=== PATIENT | female | born 1950 | race Caucasian/White ===

== ENCOUNTER 2016-10-15 07:53 | Day surgery (SDC) | payer MEDICARE ==
[~2016-10-15 07:53] MED LIST: LACTATED RINGERS 1,000 ML IV SCH
[2016-10-15 09:34] VITALS: TEMP 97.1
[2016-10-15] MEDS ORDERED: LIDOCAINE 1% 20 ML VIAL (10MG/ML) FOR IV START INTRADERMA ONE (09:45)
[2016-10-15] MEDS ORDERED: LABETALOL 5 MG/ML VIAL MDV ONE (09:57)
[2016-10-15] MEDS ORDERED: LIDOCAINE 1% INJ 10MG/ML (20 ML MDV) ONE (09:57)
[2016-10-15] MEDS ORDERED: PROPOFOL 10 MG/ML 20 ML VIAL IV ONE (09:57)
[2016-10-15 10:34] VITALS: RESP 16
--- NOTE | 2016-10-15 10:38 | P.PCN ---
Date of Procedure: 10/15/16 Procedure(s) Performed: Procedure: Colonoscopy and biopsy and polypectomy. Preoperative diagnosis: Blood in the stools. Postoperative diagnosis: 1. Sigmoid diverticulosis with no evidence of acute diverticulitis or strictures. 2. Distal sigmoid polyps snared but no large polyps or cancer. 3. Possible early sigmoid polyp biopsied. 4. Low-grade internal hemorrhoids and prominent anal papillae but no bleeding noted at the time of this exam. Preparation: HalfLytely prep. Sedation: Was provided by anesthesia. Brief clinical history: The patient is a 66-year-old female who is referred for this evaluation because of intermittent rectal bleeding and finding of blood in her stools. This started around March. She has had abdominal pains and alternating bowel habits as well. Her brother had colon cancer and both her son and another brother had polyps. This would be her first colonoscopy. Procedure: With the patient on her left lateral decubitus position and after informed consent and adequate sedation, the perianal area was inspected and it did not show any fissures or fistulas. There was a broad condyloma 3 cm away from the anal verge. No masses were felt on digital rectal examination. The Olympus CFQ 160L video colonoscope was then inserted in the rectum in the usual fashion and advanced to the cecum. The preparation was less than ideal and there was some thick secretions and fecal debris noted. No definite abnormalities were noted with the exception of the findings as noted below. There was multiple diverticular orifices seen scattered in the sigmoid. There was a prominent fold with submucosal hemorrhage in the distal sigmoid that could represent an early polyp which I biopsied. There was 2 other polyps which appeared inflammatory in the distal sigmoid which I snared and retrieved by suction but there were no large polyps or cancer. I retroflexed endoscope in the rectum before the endoscope was withdrawn. Prominent anal papillae were noted there was also low-grade internal hemorrhoids noted but there was no bleeding at the time of this exam. The patient tolerated the procedure well. Plan: The patient was reassured. Discussed dietary measures and local care for hemorrhoids. With her family history and the less than ideal preparation today and the finding of polyps, I'm recommending repeat exam in 3 years. She will follow-up with you as planned.
[2016-10-15 10:55] VITALS: BP 145/75; PULSE 90
== END 2016-10-15 11:19 | disposition home or self-care (01) ==
LOC: ORWHC2ENDO 07:53
DX: K51.40 Inflammatory polyps of colon without complications (principal); K57.30 Diverticulosis of large intestine without perforation or abscess without bleeding; K64.8 Other hemorrhoids; K62.89 Other specified diseases of anus and rectum; I10 Essential (primary) hypertension; E78.5 Hyperlipidemia, unspecified; F17.200 Nicotine dependence, unspecified, uncomplicated; Z80.0 Family history of malignant neoplasm of digestive organs; Z79.82 Long term (current) use of aspirin; Z79.899 Other long term (current) drug therapy
CPT/HCPCS: 45385; 45380; 88305; J2001; J2704; 99153

== ENCOUNTER 2019-08-23 04:22 | Inpatient (IN) | payer MEDICARE ==
--- NOTE | 2019-08-23 05:14 | XR ---
EXAMINATION TYPE: XR chest 2V DATE OF EXAM: 08/23/2019 COMPARISON: NONE HISTORY: Short of breath TECHNIQUE: 2 views FINDINGS: Heart is normal. Lungs are clear of infiltrate. Thoracic aorta is atheromatous. There are c hest leads. Bony thorax is intact. IMPRESSION: No active cardiopulmonary disease.
--- NOTE | 2019-08-23 05:17 | ED ---
SOB HPI - General Chief Complaint: Shortness of Breath Stated Complaint: Resp. distress Source: patient, EMS Mode of arrival: EMS Limitations: no limitations - History of Present Illness Initial Comments: Candace is a 69 -year-old female who is occur every day cigarette smoker but denies any formal diagnosis of COPD or emphysema. Patient presents the ER today for evaluation of wheezing and feeling like she can't catch her breath. Patient states that she has a history of needing breathing treatments in the past for which she usually goes her doctor's office she doesn't have nebulizer breathing treatments at home. He states that throughout the night tonight she felt she wa s wheezing and couldn't catch her breath so finally she decided to call the ambulance. She received 2 breathing treatments throughout the hospital reports she is feeling mostly better. Patient states she got her flu shot this year she's had her pneumonia vaccine. Patient denies any associated chest pressure or pain, palpitations, diaphoresis, lightheadedness or any recent fevers chills nausea vomiting or change in bowel or bladder habits. - Related Data Home Medications Medication Instructions Recorded Confirmed Aspirin EC [Ecotrin Low Dose] 81 mg PO HS 05/22/16 10/10/16 Simvastatin [Zocor] 40 mg PO HS 05/22/16 10/15/16 Atorvastatin Calcium [Lipitor] 20 mg PO DAILY 10/15/16 10/15/16 Allergies Allergy/AdvReac Type Severity Reaction Status Date / Time No Known Allergies Allergy Verified 10/10/16 09:12 Review of Systems ROS Statement: Those systems with pertinent positive or pertinent negative responses have been documented in the HPI. ROS Other: All systems not noted in ROS Statement are negative. Past Medical History Past Medical History: Hyperlipidemia, Hypertension History of Any Multi-Drug Resistant Organisms: None Reported Past Surgical History: Appendectomy, Cholecystectomy, Tonsillectomy Past Anesthesia/Blood Transfusion Reactions: No Reported Reaction Past Psychological History: No Psychological Hx Reported Smoking Status: Current every day smoker Past Alcohol Use History: Occasional Past Drug Use History: None Reported - Past Family History Brother(s) Family Medical History: Cancer General Exam - General Exam Comments Initial Comments: Physical Exam GENERAL: Chronically ill appearing HENT: Normocephalic, Atraumatic. EYES: PERRL, EOMI PULMONARY: Mild expiratory wheezing in all lung garduno CARDIOVASCULAR: There is a regular rate and rhythm without any murmurs gallops or rubs. ABDOMEN: Soft and nontender with normal bowel sounds. SKIN: Skin is clear with no lesions or rashes and otherwise unremarkable. : Deferred NEUROLOGIC: Patient is alert and oriented x3. Moving all extremities spontaneously MUSCULOSKELETAL: Normal extremities with adequate strength and full range of motion. No lower extremity swelling or edema. No calf tenderness. PSYCHIATRIC: Normal psychiatric evaluation. Limitations: no limitations Course Vital Signs 08/23/19 08/23/19 04:23 04:30 Temperature 98.6 F Pulse Rate 83 Respiratory 22 20 Rate Blood Pressure 123/65 O2 Sat by Pulse 96 Oximetry Medical Decision Making - Medical Decision Making She was seen and evaluated upon arrival emergency department this 69-year-old female with history of tobacco abuse but no formal diagnosis of emphysema or COPD. Patient is presenting with what appears to be a COPD exacerbation she is wheezing but afebrile. She's received 2 breathing treatments, DuoNeb's prior to arrival as well as 125 of Solu-Medrol. Additional breathing treatment and supplement oxygen was ordered for hypoxia and wheezing. Labs were unremarkable chest x-ray with no signs of pneumonia. Upon reevaluation the patient is noted be resting comfortably in bed with an oxygen saturation of only 87% despite being on 2 L nasal cannula. Decision was made to admit the patient for likely COPD exacerbation. orders were placed, pulmonology was consulted, round the clock breathing treatments daily steroids were ordered for a repeat exacerbation. - Lab Data Result diagrams: 08/23/19 04:28 08/23/19 04:28 Lab Results 08/23/19 08/23/19 08/23/19 Range/Units 04:28 04:28 04:28 WBC 10.3 (3.8-10.6) k/uL RBC 4.92 (3.80-5.40) m/uL Hgb 15.7 (11.4-16.0) gm/dL Hct 45.9 (34.0-46.0) % MCV 93.3 (80.0-100.0) fL MCH 31.8 (25.0-35.0) pg MCHC 34.1 (31.0-37.0) g/dL RDW 14.0 (11.5-15.5) % Plt Count 299 (150-450) k/uL Neutrophils % 63 % Lymphocytes % 24 % Monocytes % 7 % Eosinophils % 3 % Basophils % 1 % Neutrophils # 6.5 (1.3-7.7) k/uL Lymphocytes # 2.5 (1.0-4.8) k/uL Monocytes # 0.8 (0-1.0) k/uL Eosinophils # 0.3 (0-0.7) k/uL Basophils # 0.1 (0-0.2) k/uL PT 9.4 (9.0-12.0) sec INR 0.9 (<1.2) APTT 23.9 (22.0-30.0) sec Sodium 139 (137-145) mmol/L Potassium 4.6 (3.5-5.1) mmol/L Chloride 110 H (98-107) mmol/L Carbon Dioxide 23 (22-30) mmol/L Anion Gap 6 mmol/L BUN 13 (7-17) mg/dL Creatinine 0.54 (0.52-1.04) mg/dL Est GFR (CKD-EPI)AfAm >90 (>60 ml/min/1.73 sqM) Est GFR (CKD-EPI)NonAf >90 (>60 ml/min/1.73 sqM) Glucose 105 H (74-99) mg/dL Calcium 9.0 (8.4-10.2) mg/dL Total Bilirubin 0.8 (0.2-1.3) mg/dL AST 33 (14-36) U/L ALT 22 (4-34) U/L Alkaline Phosphatase 72 (38-126) U/L Troponin I (0.000-0.034) ng/mL Total Protein 7.0 (6.3-8.2) g/dL Albumin 3.6 (3.5-5.0) g/dL 08/23/19 Range/Units 04:28 WBC (3.8-10.6) k/uL RBC (3.80-5.40) m/uL Hgb (11.4-16.0) gm/dL Hct (34.0-46.0) % MCV (80.0-100.0) fL MCH (25.0-35.0) pg MCHC (31.0-37.0) g/dL RDW (11.5-15.5) % Plt Count (150-450) k/uL Neutrophils % % Lymphocytes % % Monocytes % % Eosinophils % % Basophils % % Neutrophils # (1.3-7.7) k/uL Lymphocytes # (1.0-4.8) k/uL Monocytes # (0-1.0) k/uL Eosinophils # (0-0.7) k/uL Basophils # (0-0.2) k/uL PT (9.0-12.0) sec INR (<1.2) APTT (22.0-30.0) sec Sodium (137-145) mmol/L Potassium (3.5-5.1) mmol/L Chloride (98-107) mmol/L Carbon Dioxide (22-30) mmol/L Anion Gap mmol/L BUN (7-17) mg/dL Creatinine (0.52-1.04) mg/dL Est GFR (CKD-EPI)AfAm (>60 ml/min/1.73 sqM) Est GFR (CKD-EPI)NonAf (>60 ml/min/1.73 sqM) Glucose (74-99) mg/dL Calcium (8.4-10.2) mg/dL Total Bilirubin (0.2-1.3) mg/dL AST (14-36) U/L ALT (4-34) U/L Alkaline Phosphatase (38-126) U/L Troponin I <0.012 (0.000-0.034) ng/mL Total Protein (6.3-8.2) g/dL Albumin (3.5-5.0) g/dL - EKG Data -: EKG Interpreted by Me EKG Comments: EKG was obtained due to complaint of shortness of breath, EKG was obtained at 4:30 AM, rate is 83 rhythm is sinus at normal axis are normal intervals there's no acute ST elevations or depressions no evidence of acute ischemia, infarction or acute right heart strain Disposition Clinical Impression: COPD exacerbation, Tobacco abuse Disposition: ADMITTED IP TO THIS HOSP Condition: Serious Referrals: Kobe Alcala MD [Primary Care Provider] - 1-2 days
[2019-08-23 05:18] LABS: Basophils # (A) 0.1 k/uL (0-0.2); Basophils % (A) 1 %; Eosinophils # (A) 0.3 k/uL (0-0.7); Eosinophils % (A) 3 %; HCT 45.9 % (34.0-46.0); HGB 15.7 gm/dL (11.4-16.0); Lymphocytes # (A) 2.5 k/uL (1.0-4.8); Lymphocytes % (A) 24 %; MCH 31.8 pg (25.0-35.0); MCHC 34.1 g/dL (31.0-37.0); MCV 93.3 fL (80.0-100.0); Mean Platelet Volume 7.2; Monocytes # (A) 0.8 k/uL (0-1.0); Monocytes % (A) 7 %; Neutrophils # (A) 6.5 k/uL (1.3-7.7); Neutrophils % (A) 63 %; Platelet Count 299 k/uL (150-450); RBC 4.92 m/uL (3.80-5.40); WBC 10.3 k/uL (3.8-10.6)
[2019-08-23 05:30] LABS: INR 0.9 (<1.2); Partial Thromboplastin Time 23.9 sec (22.0-30.0); Prothrombin Time 9.4 sec (9.0-12.0)
[2019-08-23 05:34] LABS: ALT 22 U/L (4-34); African American GFR (CKD) >90 (>60 ml/min/1.73 sqM); Anion Gap 6 mmol/L; Blood Urea Nitrogen 13 mg/dL (7-17); Carbon Dioxide 23 mmol/L (22-30); Chloride 110 mmol/L (98-107); Glucose 105 mg/dL (74-99); Non-African American GFR(CKD) >90 (>60 ml/min/1.73 sqM); Sodium 139 mmol/L (137-145)
[2019-08-23 06:17] LABS: Potassium 4.6 mmol/L (3.5-5.1)
[2019-08-23 06:18] LABS: AST 33 U/L (14-36); Albumin 3.6 g/dL (3.5-5.0); Alkaline Phosphatase 72 U/L (38-126); Total Bilirubin 0.8 mg/dL (0.2-1.3)
[2019-08-23] MEDS ORDERED: IPRATROPIUM-ALBUTEROL 3 ML NEB INHALATION PRN ×2 (06:29→15:09)
[2019-08-23] MEDS ORDERED: NICOTINE POLACRILEX 2 MG GUM BUCCAL PRN (06:29)
[2019-08-23] MEDS ORDERED: predniSONE 20 MG TAB PO SCH (09:00)
[2019-08-23] MEDS: NICOTINE 14MG/24HR PATCH TRANSDERM SCH (10:29)
[2019-08-23] MEDS ORDERED: ACETAMINOPHEN TAB 500 MG TAB PO PRN (15:48)
[2019-08-23] MEDS ORDERED: TEMAZEPAM 15 MG CAP PO PRN (15:48)
[2019-08-23] MEDS ORDERED: ALPRAZolam 0.25 MG TAB PO PRN (15:48)
[2019-08-23] MEDS: IPRATROPIUM-ALBUTEROL 3 ML NEB INHALATION SCH ×2 (16:16→19:54)
[2019-08-23] MEDS: methylPREDNISolone SOD SUCCI 125 MG/2 ML VIAL IV SCH ×2 (17:07→23:04)
[2019-08-23] MEDS: guaiFENesin-Coden 100-10MG/5ML 10 ML CUP PO PRN (17:07)
--- NOTE | 2019-08-23 17:15 | HP ---
HISTORY AND PHYSICAL DATE OF SERVICE: 08/23/2019 CHIEF COMPLAINT: Shortness of breath. HISTORY OF PRESENT ILLNESS: This 69-year-old woman with a past medical history of multiple medical problems including GERD, hypertension, hyperlipidemia, history of renal disease, appendectomy, history of cholecystectomy, anxiety, depression, being followed by Dr. Alcala in the outpatient setting, was complaining of shortness of breath over the past several days. Patient has some cough and sputum. The patient had increasing wheezing and the patient unable to catch breath. The patient continued ongoing smoking. The patient was clinically diagnosed with COPD and admitted for evaluation and treatment. There is no history of fever, rigors. No headache, loss of consciousness, seizures. Influenza is negative. PAST MEDICAL HISTORY: History of GERD, history of GI bleed, history of hypertension, hyperlipidemia, history of appendectomy, cholecystectomy, anxiety, depression. MEDICATIONS: Prior to admission home medications are: 1. Mucinex 1200 mg p.o. b.i.d. 2. Cozaar 50 mg q.h.s. 3. Diltiazem ER 180 mg q.h.s. 4. Celexa 40 mg p.o. daily. 5. Lipitor 20 mg q.h.s. 6. Ecotrin 81 mg q.h.s. ALLERGIES: None. FAMILY HISTORY: History of colon cancer in the family. SOCIAL HISTORY: Continued ongoing smoking and occasional alcohol intake. REVIEW OF SYSTEMS: ENT No history of diminished hearing or vision. CARDIOVASCULAR No angina or palpitations. RESPIRATORY As mentioned earlier. GI No nausea, vomiting, or diarrhea. No dysuria. NERVOUS No numbness or weakness. ALLERGY/IMMUNOLOGY No asthma or hayfever. MUSCULOSKELETAL As mentioned earlier. HEMATOLOGY/ONCOLOGY Negative. ENDOCRINE No history of diabetes or hypothyroidism. CONSTITUTIONAL As mentioned earlier. PSYCH As mentioned earlier. PHYSICAL EXAMINATION: Alert and oriented x3. Pulse 80, blood pressure is 170/77, respiration 22, temperature 98.7, pulse ox 98% on 2 L. HEENT: Conjunctivae normal. Oral mucosa moist. NECK: No jugular venous distention. No lymph node enlargement. CARDIOVASCULAR: S1, S2. RESPIRATORY: Diminished breath sounds at the bases. A few scattered rhonchi and crackles. ABDOMEN: Soft, obese, nontender. LEGS: No edema, no swelling. NERVOUS SYSTEM: Higher functions mentioned earlier. Moves all four limbs. No focal deficits. LYMPHATICS: No lymph node in neck or axilla. SKIN: No rash. JOINTS: No active deforming arthropathy. LABS: At this time show CBC within normal limits. Sodium 130, potassium 4.6. Chest x-ray personally reviewed by me showed increased bronchovascular markings. The EKG shows normal sinus rhythm, no acute abnormality. ASSESSMENT: 1. Shortness of breath for evaluation, possible chronic obstructive pulmonary disease acute exacerbation with acute purulent tracheobronchitis. 2. Continued ongoing nicotine dependence. 3. Gastroesophageal reflux disease. 4. History of gastrointestinal bleed. 5. Hypertension. 6. Hyperlipidemia. 7. History of renal disease. 8. History of colonic polyps. 9. History of urinary tract infection. 10.History of nephrolithiasis. 11.History of cholecystectomy. 12.History of anxiety, depression. 13.Obesity with body mass of 32.9. RECOMMENDATIONS AND DISCUSSION: In this 69-year-old woman who presented with multiple complex medical issues, we will monitor the patient closely, continue the current management and symptomatic treatment. At this time we will initiate empiric bronchodilators in the intensive manner. Empiric antibiotics will be given. Dr. Lira will consulted. Will also order a 2D echo with Doppler to complete the workup. I would also recommend a BNP also. UA with micro has also been requested to rule out the possibility of heavy proteinuria. Otherwise, prognosis guarded. Further recommendations to follow. MMODL / IJN: [id number] /
[2019-08-23] MEDS: SYMBICORT 160-4.5 MCG INHALER INHALATION SCH (19:54)
--- NOTE | 2019-08-23 21:47 | CONS ---
CONSULTATION DATE OF CONSULTATION: August 23, 2019 HISTORY OF PRESENT ILLNESS: This is a 69-year-old female who is smokes cigarettes each day. She apparently has never seen a lung doctor in the past. Her primary care physician is Dr. Alcala. She presents to the emergency department with complaints of profound shortness of breath and difficulty breathing. She was wheezing. She felt like she could not catch her breath. She had tightness in her chest. She was coughing but not producing any phlegm. The patient does not take any breathing medications at home including either updrafts or inhalers. For that reason, she called the EMS and she was brought into the emergency room where she was evaluated. In route, she apparently received 2 breathing treatments. She is feeling a bit better but still has a lot of tightness in her chest, coughing and wheezing. Again, she smokes quite heavily, more than a pack a day and continues to smoke cigarettes. Again, has never seen a lung doctor in the past. Does not use oxygen at home and does not have any breathing medications or equipment at home for her suspected COPD. HOME MEDICATIONS: Include aspirin, Zocor, and Lipitor. ALLERGIES: Denied. PAST MEDICAL HISTORY: Apparently positive for hypertension and hyperlipidemia. She takes no medication for hypertension though. She likely has underlying COPD as well from chronic tobacco use, although it has never been documented. She has never seen a lung doctor in the past. SURGICAL HISTORY: Includes tonsillectomy, appendectomy and cholecystectomy. SOCIAL HISTORY: Positive for ongoing everyday tobacco use at 1 to 1 and 1/2 packs a day. She has been smoking probably for nearly 50 years. Alcohol use is occasional. She denies illicit drug use. FAMILY HISTORY: Positive for a brother with cancer. She does not know her parents. REVIEW OF SYSTEMS: CONSTITUTIONAL negative. NEUROLOGIC negative. HEENT negative. CARDIOVASCULAR negative. PULMONARY shortness of breath. Chest tightness, wheezing, cough. No phlegm production. GI negative. negative. RHEUMATOLOGIC negative. IMMUNOLOGIC negative ENDOCRINOLOGIC negative. DERMATOLOGIC negative. PHYSICAL EXAMINATION: VITAL SIGNS: Current vital signs are reviewed. Her temperature is 98, heart rate 80, respiratory rate 22, blood pressure 170/77 mean 108, 2 L saturation 98%. She appears in no acute distress. She is lying on her left side. Nasal O2 in place. There is no conversational dyspnea, use of accessory muscles or audible wheezing. HEENT examination is grossly unremarkable. Nasal O2 in place. Teeth are in poor repair. NECK: Supple. Full range of motion. No adenopathy or thyromegaly. Neck veins are flat. CARDIOVASCULAR examination reveals regular rhythm and rate. Heart rate 80 beats per minute. S1, S2 normal. No S3, S4, or murmur. LUNGS: Reveal some expiratory wheezes. Breath sounds are diminished. There is prolongation on forced maneuver. No crackles. A few scattered rhonchi. Adventitious lung sounds are more prominent on forced maneuver. She wheezes on forced maneuver. ABDOMEN: Obese. Bowel sounds are heard. EXTREMITIES are intact. No cyanosis, clubbing, or edema. SKIN: Without rash. NEUROLOGIC: Examination is nonfocal. LABS: Reviewed. White count 10.3, hemoglobin 15.7, hematocrit 45.9, platelet count 299,000. PT/INR and PTT all normal. Sodium 139, potassium 4.6, chloride 110, CO2 23, anion gap is 6. BUN and creatinine were 13 and 0.54. Influenza studies are negative. The rest of the labs look good. Troponins were negative. Chest x-ray shows no acute cardiopulmonary disease. Medications are reviewed. She is just on Guaifenesin with codeine, DuoNeb, nicotine patch, and prednisone 40 mg a day. ASSESSMENT: 1. Chronic obstructive pulmonary disease exacerbation not likely triggered by infection. 2. History of ongoing tobacco use with nicotine addiction. 3. History of hypertension. 4. History of hyperlipidemia. PLAN: The patient will be given Symbicort 160/4.5, 2 puffs twice a day. We will give her a short course of oral antibiotics. Discontinue the prednisone in favor of Solu-Medrol. Additional recommendations and suggestions are forthcoming. I would suspect a 2-3 day stay here in the hospital. No additional recommendations are made. The chest x-ray is reviewed and discussed with the patient. We counseled her about the importance of smoking cessation. Nicotine patch has been applied. MMODL / IJN: [id number] /
[2019-08-23] MEDS: guaiFENesin 600 MG TABLET.ER PO SCH (21:49)
[2019-08-23] MEDS: ASPIRIN 81 MG PO SCH (21:49)
[2019-08-23] MEDS: HEPARIN SODIUM,PORCINE 5,000 UNIT/ML 1 ML VIAL SQ SCH (21:49)
[2019-08-23] MEDS: ATORVASTATIN 20 MG TAB PO SCH (21:49)
[2019-08-23] MEDS: LOSARTAN 50 MG TAB PO SCH (21:49)
[2019-08-23] MEDS: DILTIAZEM CD 180 MG CAP.ER.24H PO SCH (21:52)
[2019-08-23] MEDS: SULFAMETHOX-TMP 800-160MG 1 EACH TAB PO SCH (21:52)
[2019-08-24] MEDS: methylPREDNISolone SOD SUCCI 125 MG/2 ML VIAL IV SCH ×4 (05:27→23:47)
[2019-08-24] MEDS: IPRATROPIUM-ALBUTEROL 3 ML NEB INHALATION SCH ×4 (07:08→20:18)
[2019-08-24] MEDS: SYMBICORT 160-4.5 MCG INHALER INHALATION SCH ×2 (07:08→20:18)
[2019-08-24 08:47] LABS: Basophils % (A) 0 %; Eosinophils % (A) 0 %; HCT 49.2 % (34.0-46.0); HGB 15.3 gm/dL (11.4-16.0); Lymphocytes # (A) 0.7 k/uL (1.0-4.8); Lymphocytes % (A) 3 %; MCH 29.4 pg (25.0-35.0); MCHC 31.2 g/dL (31.0-37.0); MCV 94.2 fL (80.0-100.0); Mean Platelet Volume 7.4; Monocytes # (A) 0.4 k/uL (0-1.0); Monocytes % (A) 2 %; Neutrophils # (A) 20.7 k/uL (1.3-7.7); Neutrophils % (A) 95 %; Platelet Count 342 k/uL (150-450); RBC 5.23 m/uL (3.80-5.40); RDW 13.9 % (11.5-15.5); WBC 21.9 k/uL (3.8-10.6)
[2019-08-24] MEDS: NICOTINE 14MG/24HR PATCH TRANSDERM SCH (08:47)
[2019-08-24] MEDS: HEPARIN SODIUM,PORCINE 5,000 UNIT/ML 1 ML VIAL SQ SCH ×2 (08:47→21:59)
[2019-08-24] MEDS: guaiFENesin 600 MG TABLET.ER PO SCH ×2 (08:48→21:59)
[2019-08-24] MEDS: PANTOPRAZOLE 40 MG TABLET PO SCH (08:48)
[2019-08-24] MEDS: SULFAMETHOX-TMP 800-160MG 1 EACH TAB PO SCH ×2 (08:49→21:59)
[2019-08-24] MEDS: CITALOPRAM HYDROBROMIDE 20 MG TAB PO SCH (08:49)
[2019-08-24 08:56] LABS: African American GFR (CKD) >90 (>60 ml/min/1.73 sqM); Anion Gap 10 mmol/L; Blood Urea Nitrogen 19 mg/dL (7-17); Calcium 9.9 mg/dL (8.4-10.2); Carbon Dioxide 21 mmol/L (22-30); Chloride 110 mmol/L (98-107); Glucose 161 mg/dL (74-99); Non-African American GFR(CKD) >90 (>60 ml/min/1.73 sqM); Sodium 141 mmol/L (137-145)
--- NOTE | 2019-08-24 10:58 | ECHOF ---
Referral Reason:chf MEASUREMENTS -------- HEIGHT: 154.9 cm WEIGHT: 78.9 kg BP: 111/67 RVIDd: 2.8 cm (< 3.3) IVSd: 1.4 cm (0.6 - 1.1) LVIDd: 3.4 cm (3.9 - 5.3) LVPWd: 1.2 cm (0.6 - 1.1) IVSs: 1.5 cm LVIDs: 2.2 cm LVPWs: 1.7 cm LA Diam: 3.3 cm (2.7 - 3.8) LAESV Index (A-L): 22.50 ml/m Ao Diam: 2.4 cm (2.0 - 3.7) MV EXCURSION: 10.738 mm (> 18.000) MV EF SLOPE: 86 mm/s (70 - 150) EPSS: 0.4 cm MV E Donnie: 0.85 m/s MV DecT: 289 ms MV A Donnie: 1.04 m/s MV E/A Ratio: 0.82 AV maxP.24 mmHg AV meanP.98 mmHg RAP: 5.00 mmHg RVSP: 35.43 mmHg FINDINGS -------- Sinus rhythm. This was a technically difficult study with suboptimal views. The left ventricular size is normal. There is moderate concentric left ventricular hypertrophy. O verall left ventricular systolic function is normal with, an EF between 55 - 60 %. The right ventricle is normal in size. Normal LA size by volume 22+/-6 ml/m2. The right atrial size is normal. Interatrial and interventricular septum intact. The aortic valve was not well visualized. Peak/mean gradient across the Aortic Valve is 15.24mmHg / 6.98mmHg. The mitral valve is normal. There is trace to mild mitral regurgitation. Mild tricuspid regurgitation present. There is mild pulmonary hypertension. The pulmonic valve was not well visualized. Trace/mild (physiologic) pulmonic regurgitation. The aortic root size is normal. Normal inferior vena cava with normal inspiratory collapse consistent with estimated right atrial pre ssure of 5 mmHg. There is no pericardial effusion. CONCLUSIONS -------- 1. Sinus rhythm. 2. This was a technically difficult study with suboptimal views. 3. The left ventricular size is normal. 4. There is moderate concentric left ventricular hypertrophy. 5. Overall left ventricular systolic function is normal with, an EF between 55 - 60 %. 6. Normal LA size by volume 22+/-6 ml/m2. 7. The aortic valve was not well visualized. 8. Peak/mean gradient across the Aortic Valve is 15.24mmHg / 6.98mmHg. 9. There is trace to mild mitral regurgitation. 10. Mild tricuspid regurgitation present. 11. There is mild pulmonary hypertension. 12. Trace/mild (physiologic) pulmonic regurgitation. 13. There is no pericardial effusion. LEARNING DEVELOPER: Nydia Almonte RDCS
--- NOTE | 2019-08-24 13:43 | P.PN ---
Subjective Progress Note Date: 08/24/19 Principal diagnosis: Acute exacerbation of COPD On 08/24/2019 patient seen in follow-up on medical surgical floor. She is feeling better, breathing a bit easier, however still dyspneic, and bronchospastic on today's exam. She is awake and alert, mentation appropriate, on 2 L of oxygen her pulse ox is 96%, hemodynamically stable. On today's labs her white blood cell count is 21.9, could be related to IV steroids, hemoglobin is 15.3, sodium is 141, potassium is 4.0, chloride is 110, CO2 is 21, B1 is 19 and creatinine 0.5. Influenza screen was negative. Occasional cough, no hemoptysis. Objective - Vital Signs Vital signs: Vital Signs Temp 98 F 08/24/19 11:36 Pulse 84 08/24/19 11:58 Resp 20 08/24/19 11:36 BP 124/65 08/24/19 11:36 Pulse Ox 96 08/24/19 11:36 Intake & Output 08/23/19 08/24/19 08/24/19 18:59 06:59 18:59 Intake Total 360 Output Total 350 Balance 10 Weight 78.925 kg Intake: Oral 360 Output: Urine 350 Other: # Voids 1 - Exam GENERAL EXAM: Alert, very pleasant, 69-year-old white female comfortable in no apparent distress. HEAD: Normocephalic/atraumatic. EYES: Normal reaction of pupils, equal size. Conjunctiva pink, sclera white. NOSE: Clear with pink turbinates. THROAT: No erythema or exudates. NECK: No masses, no JVD, no thyroid enlargement, no adenopathy. CHEST: No chest wall deformity. Symmetrical expansion. LUNGS: Equal air entry with diffuse wheezes CVS: Regular rate and rhythm, normal S1 and S2, no gallops, no murmurs, no rubs ABDOMEN: Soft, nontender. No hepatosplenomegaly, normal bowel sounds, no guarding or rigidity. EXTREMITIES: No clubbing, no edema, no cyanosis, 2+ pulses and upper and lower extremities. MUSCULOSKELETAL: Muscle strength and tone normal. SPINE: No scoliosis or deformity SKIN: No rashes CENTRAL NERVOUS SYSTEM: Alert and oriented -3. No focal deficits, tone is normal in all 4 extremities. PSYCHIATRIC: Alert and oriented -3. Appropriate affect. Intact judgment and insight. - Labs CBC & Chem 7: 08/24/19 08:13 08/24/19 08:13 Labs: Abnormal Lab Results - Last 24 Hours (Table) 08/24/19 08/24/19 Range/Units 08:13 08:13 WBC 21.9 H (3.8-10.6) k/uL Hct 49.2 H (34.0-46.0) % Neutrophils # 20.7 H (1.3-7.7) k/uL Lymphocytes # 0.7 L (1.0-4.8) k/uL Chloride 110 H (98-107) mmol/L Carbon Dioxide 21 L (22-30) mmol/L BUN 19 H (7-17) mg/dL Glucose 161 H (74-99) mg/dL Assessment and Plan Plan: Assessment: #1. Acute exacerbation of chronic obstructive pulmonary disease #2. Hitory of ongoing tobacco use with nicotine addiction #3. History of hypertension #4. History of hyperlipidemia Plan: Current medical treatment, continue Symbicort, nebulized bronchodilator's, IV steroids. Vital signs are stable, patient is breathing easier, improving. We'll continue to follow I performed a history & physical examination of the patient and discussed their management with my nurse practitioner, Billie Apodaca. I reviewed the nurse practitioner's note and agree with the documented findings and plan of care. Lung sounds are positive for diffuse wheezes throughout the lung garduno. The findings and the impression was discussed with the patient. I attest to the documentation by the nurse practitioner. Time with Patient: Less than 30
--- NOTE | 2019-08-24 18:52 | PN ---
PROGRESS NOTE DATE OF SERVICE: 08/24/2019 This 69-year-old woman who was admitted with shortness of breath, possibly COPD, acute exacerbation, also had continued ongoing nicotine dependence. A 2D echo with Doppler was done which showed ejection fraction about 55% to 60%. The patient was extremely short of breath. Influenza screen is negative. No chest pain. No palpitation. PHYSICAL EXAMINATION: Alert and oriented x3. Pulse is 83, blood pressure 124/65, respiration 20, temperature 98 degrees, pulse ox 96% on 2 L. HEENT: Conjunctivae normal. NECK: No jugular venous distention. CARDIOVASCULAR SYSTEM: S1, S2 muffled. RESPIRATORY SYSTEM: Breath sounds diminished at the bases. Scattered rhonchi and crackles. Expiratory wheezing also present. ABDOMEN: Soft, non-tender. LEGS: No edema. No swelling. NERVOUS SYSTEM: No focal deficit. LABS: WBC 21.9, hemoglobin 15.3, sodium 141, potassium 4. ASSESSMENT: 1. Shortness of breath, possibly chronic obstructive pulmonary disease, acute exacerbation, with acute purulent tracheobronchitis. 2. Continued ongoing nicotine dependence. 3. Gastroesophageal reflux disease. 4. History of gastrointestinal bleed. 5. Hypertension. 6. Hyperlipidemia. 7. History of renal disease. 8. History of chronic polyps. 9. History of urinary tract infection. 10.History of nephrolithiasis. 11.History of cholecystectomy. 12.History of anxiety, depression. 13.Obesity with body mass index of 32.9. RECOMMENDATIONS AND DISCUSSION: I recommend to continue current medications, continue with the monitoring, symptomatic treatment. Otherwise, 2D echo showed normal ejection fraction. The BNP was 597. Influenza negative. Will continue to monitor, continue steroids and bronchodilators and antibiotics. Further recommendations to follow. Closely follow with Dr. Lira. Further recommendations to follow. MMODL / IJN: [id number] /
[2019-08-24] MEDS: ATORVASTATIN 20 MG TAB PO SCH (21:59)
[2019-08-24] MEDS: guaiFENesin-Coden 100-10MG/5ML 10 ML CUP PO PRN (21:59)
[2019-08-24] MEDS: DILTIAZEM CD 180 MG CAP.ER.24H PO SCH (21:59)
[2019-08-24] MEDS: ASPIRIN 81 MG PO SCH (21:59)
[2019-08-24] MEDS: LOSARTAN 50 MG TAB PO SCH (21:59)
[2019-08-25] MEDS: methylPREDNISolone SOD SUCCI 125 MG/2 ML VIAL IV SCH ×4 (05:55→23:59)
[2019-08-25 07:34] LABS: Basophils % (A) 0 %; Eosinophils # (A) 0.1 k/uL (0-0.7); Eosinophils % (A) 0 %; HCT 44.5 % (34.0-46.0); HGB 14.4 gm/dL (11.4-16.0); Lymphocytes # (A) 0.7 k/uL (1.0-4.8); Lymphocytes % (A) 3 %; MCH 30.3 pg (25.0-35.0); MCHC 32.3 g/dL (31.0-37.0); Mean Platelet Volume 7.6; Monocytes # (A) 0.4 k/uL (0-1.0); Monocytes % (A) 2 %; Neutrophils # (A) 23.4 k/uL (1.3-7.7); Neutrophils % (A) 95 %; Platelet Count 313 k/uL (150-450); RBC 4.74 m/uL (3.80-5.40); RDW 14.1 % (11.5-15.5); WBC 24.7 k/uL (3.8-10.6)
[2019-08-25 07:52] LABS: African American GFR (CKD) >90 (>60 ml/min/1.73 sqM); Anion Gap 10 mmol/L; Blood Urea Nitrogen 25 mg/dL (7-17); Calcium 9.6 mg/dL (8.4-10.2); Carbon Dioxide 20 mmol/L (22-30); Chloride 110 mmol/L (98-107); Glucose 127 mg/dL (74-99); Non-African American GFR(CKD) 89 (>60 ml/min/1.73 sqM); Potassium 4.5 mmol/L (3.5-5.1); Sodium 140 mmol/L (137-145)
[2019-08-25] MEDS: SYMBICORT 160-4.5 MCG INHALER INHALATION SCH ×2 (08:48→20:51)
[2019-08-25] MEDS: IPRATROPIUM-ALBUTEROL 3 ML NEB INHALATION SCH ×4 (08:48→20:51)
[2019-08-25] MEDS: guaiFENesin 600 MG TABLET.ER PO SCH ×2 (09:59→21:46)
[2019-08-25] MEDS: HEPARIN SODIUM,PORCINE 5,000 UNIT/ML 1 ML VIAL SQ SCH ×2 (09:59→21:46)
[2019-08-25] MEDS: PANTOPRAZOLE 40 MG TABLET PO SCH (09:59)
[2019-08-25] MEDS: CITALOPRAM HYDROBROMIDE 20 MG TAB PO SCH (09:59)
[2019-08-25] MEDS: SULFAMETHOX-TMP 800-160MG 1 EACH TAB PO SCH ×2 (10:00→21:47)
[2019-08-25] MEDS: NICOTINE 14MG/24HR PATCH TRANSDERM SCH (10:04)
--- NOTE | 2019-08-25 16:38 | P.PN ---
Subjective Progress Note Date: 08/25/19 Principal diagnosis: Acute exacerbation of chronic obstructive pulmonary disease per The patient is seen today 08/25/2019 in follow-up on the regular medical floor. She is awake and alert in no acute distress. Still not quite back to her baseline. Still somewhat bronchospastic and wheezy. Maintaining good O2 saturation in the upper 90s on 2 L/m per nasal cannula. White count 24.7. Hemoglobin 14.4. Creatinine 0.69. She is continued on DuoNeb inhalations, Symbicort, IV Solu-Medrol. On both NicoDerm patch and Nicorette gum. Antibiotics in the in the form of Bactrim. Objective - Vital Signs Vital signs: Vital Signs Temp 97.8 F 08/25/19 11:39 Pulse 88 08/25/19 12:23 Resp 17 08/25/19 11:39 BP 142/68 08/25/19 11:39 Pulse Ox 96 08/25/19 11:39 Intake & Output 08/24/19 08/25/19 08/25/19 18:59 06:59 18:59 Intake Total 580 850 Balance 580 850 Intake: Oral 580 850 Other: Voiding Method Toilet Toilet # Voids 3 2 3 - Exam GENERAL EXAM: Alert, pleasant, 69-year-old female patient, on 2 L nasal cannula, comfortable in no apparent distress. HEAD: Normocephalic/atraumatic. EYES: Normal reaction of pupils, equal size. Conjunctiva pink, sclera white. NOSE: Clear with pink turbinates. THROAT: No erythema or exudates. NECK: No masses, no JVD, no thyroid enlargement, no adenopathy. CHEST: No chest wall deformity. Symmetrical expansion. LUNGS: Equal air entry with diffuse wheezes CVS: Regular rate and rhythm, normal S1 and S2, no gallops, no murmurs, no rubs ABDOMEN: Soft, nontender. No hepatosplenomegaly, normal bowel sounds, no guarding or rigidity. EXTREMITIES: No clubbing, no edema, no cyanosis, 2+ pulses and upper and lower extremities. MUSCULOSKELETAL: Muscle strength and tone normal. SPINE: No scoliosis or deformity SKIN: No rashes CENTRAL NERVOUS SYSTEM: No focal deficits, tone is normal in all 4 extremities. PSYCHIATRIC: Alert and oriented -3. Appropriate affect. Intact judgment and insight. - Labs CBC & Chem 7: 08/25/19 06:48 08/25/19 06:48 Labs: Abnormal Lab Results - Last 24 Hours (Table) 08/25/19 08/25/19 Range/Units 06:48 06:48 WBC 24.7 H (3.8-10.6) k/uL Neutrophils # 23.4 H (1.3-7.7) k/uL Lymphocytes # 0.7 L (1.0-4.8) k/uL Chloride 110 H (98-107) mmol/L Carbon Dioxide 20 L (22-30) mmol/L BUN 25 H (7-17) mg/dL Glucose 127 H (74-99) mg/dL Assessment and Plan Assessment: #1. Acute exacerbation of chronic obstructive pulmonary disease #2. Hitory of ongoing tobacco use with nicotine addiction #3. History of hypertension #4. History of hyperlipidemia Plan: The patient is seen and evaluated by Dr. Lira. She is improved today compared to yesterday. Still not quite back to her baseline. We'll continue with the current treatment plan. Probable discharge in the a.m. She is again educated regarding the importance of complete smoking cessation. We'll continue to follow. I, the cosigning physician, performed a history & physical examination of the patient. Lungs sounds with bilateral end expiratory wheeze, diminished. Maintaining good O2 saturations in the 90s on 2 L/m per nasal cannula. I discussed the assessment and plan of care with my nurse practitioner, Mireille Marin. I attest to the above note as dictated by her.
[2019-08-25] MEDS: ASPIRIN 81 MG PO SCH (21:46)
[2019-08-25] MEDS: DILTIAZEM CD 180 MG CAP.ER.24H PO SCH (21:46)
[2019-08-25] MEDS: ATORVASTATIN 20 MG TAB PO SCH (21:46)
[2019-08-25] MEDS: LOSARTAN 50 MG TAB PO SCH (21:46)
--- NOTE | 2019-08-25 23:55 | PN ---
PROGRESS NOTE DATE OF SERVICE: 08/25/2019 This 69-year-old woman was admitted with COPD exacerbation, is being closely monitored. The patient is on bronchodilators, steroids. Dr. Lira is following the patient closely. No chest pain. No palpitations. No fever. PHYSICAL EXAMINATION: Alert and oriented x3. Pulse is 86, blood pressure 142/60. Respirations 17, temperature 97.8, pulse ox 98% on 2 L. HEENT is conjunctivae normal. NECK: No JVD. CARDIOVASCULAR: S1, S2 muffled. RESPIRATORY SYSTEM: Breath sounds diminished at the bases. Scattered rhonchi and crackles. ABDOMEN is soft, nontender. No mass palpable. LEGS are no edema. No swelling. CENTRAL NERVOUS SYSTEM: No focal deficits. LABS: WBC 24.7, hemoglobin 14.4. Sodium 140, potassium 4.5. Glucose 127. ASSESSMENT: 1. Shortness of breath, possible chronic obstructive pulmonary disease acute exacerbation with acute purulent tracheobronchitis. 2. Continued ongoing nicotine dependence. 3. Gastroesophageal reflux disease. 4. History of gastrointestinal bleed. 5. Hypertension. 6. Hyperlipidemia. 7. History of renal disease. 8. History of colonic polyps. 9. History of urinary tract infection. 10.History of nephrolithiasis. 11.History of cholecystectomy. 12.History of anxiety, depression. 13.Obesity with body mass index of 32.9. RECOMMENDATIONS AND DISCUSSION: Recommend to continue current medications, monitoring, management and symptomatic treatment. Otherwise, at this time, I recommend continue with bronchodilators. Continue steroids. Continue the empiric antibiotics. Closely follow with Dr. Lira. Otherwise, further recommendations to follow. MMODL / IJN: [id number] /
[2019-08-26] MEDS: methylPREDNISolone SOD SUCCI 125 MG/2 ML VIAL IV SCH ×4 (05:39→23:40)
[2019-08-26 07:21] LABS: Basophils % (A) 0 %; Eosinophils # (A) 0.2 k/uL (0-0.7); Eosinophils % (A) 1 %; HGB 14.5 gm/dL (11.4-16.0); Lymphocytes # (A) 0.7 k/uL (1.0-4.8); Lymphocytes % (A) 4 %; MCH 30.8 pg (25.0-35.0); MCHC 32.9 g/dL (31.0-37.0); MCV 93.6 fL (80.0-100.0); Mean Platelet Volume 7.4; Monocytes # (A) 0.2 k/uL (0-1.0); Monocytes % (A) 1 %; Neutrophils # (A) 14.9 k/uL (1.3-7.7); Neutrophils % (A) 93 %; Platelet Count 248 k/uL (150-450); RDW 14.1 % (11.5-15.5)
[2019-08-26 07:34] LABS: African American GFR (CKD) >90 (>60 ml/min/1.73 sqM); Anion Gap 5 mmol/L; Blood Urea Nitrogen 22 mg/dL (7-17); Calcium 9.3 mg/dL (8.4-10.2); Carbon Dioxide 24 mmol/L (22-30); Chloride 109 mmol/L (98-107); Glucose 134 mg/dL (74-99); Non-African American GFR(CKD) >90 (>60 ml/min/1.73 sqM); Potassium 4.8 mmol/L (3.5-5.1); Sodium 138 mmol/L (137-145)
[2019-08-26] MEDS: IPRATROPIUM-ALBUTEROL 3 ML NEB INHALATION SCH ×4 (08:41→20:49)
[2019-08-26] MEDS: SYMBICORT 160-4.5 MCG INHALER INHALATION SCH ×3 (08:41→20:53)
[2019-08-26] MEDS: guaiFENesin 600 MG TABLET.ER PO SCH ×2 (08:57→21:04)
[2019-08-26] MEDS: CITALOPRAM HYDROBROMIDE 20 MG TAB PO SCH (08:57)
[2019-08-26] MEDS: HEPARIN SODIUM,PORCINE 5,000 UNIT/ML 1 ML VIAL SQ SCH ×2 (08:57→21:05)
[2019-08-26] MEDS: PANTOPRAZOLE 40 MG TABLET PO SCH (08:57)
[2019-08-26] MEDS: NICOTINE 14MG/24HR PATCH TRANSDERM SCH (08:58)
[2019-08-26] MEDS: SULFAMETHOX-TMP 800-160MG 1 EACH TAB PO SCH ×2 (08:58→21:05)
--- NOTE | 2019-08-26 14:46 | P.PN ---
Subjective Progress Note Date: 08/26/19 Principal diagnosis: Acute exacerbation of COPD On 08/24/2019 patient seen in follow-up on medical surgical floor. She is feeling better, breathing a bit easier, however still dyspneic, and bronchospastic on today's exam. She is awake and alert, mentation appropriate, on 2 L of oxygen her pulse ox is 96%, hemodynamically stable. On today's labs her white blood cell count is 21.9, could be related to IV steroids, hemoglobin is 15.3, sodium is 141, potassium is 4.0, chloride is 110, CO2 is 21, B1 is 19 and creatinine 0.5. Influenza screen was negative. Occasional cough, no hemoptysis. On 08/26/2019 patient is seen in follow-up on medical surgical floor. She is improving, still some slight congestion, and some scattered wheezing, but overall doing better breathing easier. He is on 2 L of oxygen her pulse ox is 95%, hemodynamically stable, she is afebrile. Patient is on nebulized bronchodilators, IV steroids, and Bactrim for antibiotic coverage Objective - Vital Signs Vital signs: Vital Signs Temp 97.6 F 08/26/19 13:00 Pulse 98 08/26/19 13:00 Resp 17 08/26/19 13:00 BP 119/55 08/26/19 13:00 Pulse Ox 95 08/26/19 13:00 Intake & Output 08/25/19 08/26/19 08/26/19 18:59 06:59 18:59 Intake Total 850 1860 Balance 850 1860 Intake: Oral 850 1860 Other: Voiding Method Toilet Toilet Toilet # Voids 3 1 - Exam GENERAL EXAM: Alert, very pleasant, 69-year-old white female comfortable in no apparent distress. HEAD: Normocephalic/atraumatic. EYES: Normal reaction of pupils, equal size. Conjunctiva pink, sclera white. NOSE: Clear with pink turbinates. THROAT: No erythema or exudates. NECK: No masses, no JVD, no thyroid enlargement, no adenopathy. CHEST: No chest wall deformity. Symmetrical expansion. LUNGS: Equal air entry with diffuse wheezes CVS: Regular rate and rhythm, normal S1 and S2, no gallops, no murmurs, no rubs ABDOMEN: Soft, nontender. No hepatosplenomegaly, normal bowel sounds, no guarding or rigidity. EXTREMITIES: No clubbing, no edema, no cyanosis, 2+ pulses and upper and lower extremities. MUSCULOSKELETAL: Muscle strength and tone normal. SPINE: No scoliosis or deformity SKIN: No rashes CENTRAL NERVOUS SYSTEM: Alert and oriented -3. No focal deficits, tone is normal in all 4 extremities. PSYCHIATRIC: Alert and oriented -3. Appropriate affect. Intact judgment and insight. - Labs CBC & Chem 7: 08/26/19 07:01 08/26/19 07:01 Labs: Abnormal Lab Results - Last 24 Hours (Table) 08/26/19 08/26/19 Range/Units 07:01 07:01 WBC 16.0 H (3.8-10.6) k/uL Neutrophils # 14.9 H (1.3-7.7) k/uL Lymphocytes # 0.7 L (1.0-4.8) k/uL Chloride 109 H (98-107) mmol/L BUN 22 H (7-17) mg/dL Glucose 134 H (74-99) mg/dL Assessment and Plan Plan: Assessment: #1. Acute exacerbation of chronic obstructive pulmonary disease #2. Hitory of ongoing tobacco use with nicotine addiction #3. History of hypertension #4. History of hyperlipidemia Plan: Continue current medical treatment, continue bronchodilators, continue IV steroids continue Bactrim, she is improving, although still somewhat bronchospastic and congested, continue Mucinex, vital signs have been stable, increase activity as tolerated, patient could be considered for discharge home in another 24 hours I performed a history & physical examination of the patient and discussed their management with my nurse practitioner, Billie Apodaca. I reviewed the nurse practitioner's note and agree with the documented findings and plan of care. Lung sounds are positive for diffuse wheezes throughout the lung garduno. The findings and the impression was discussed with the patient. I attest to the documentation by the nurse practitioner. Time with Patient: Less than 30
--- NOTE | 2019-08-26 14:54 | CDI ---
Documentation Clarification Form Date: 08/26/2019 02:38:59 PM From: Cynthia De Oliveira RN, CCDS Admit Date: 08/26/2019 08:53:00 AM Patient Name: Candace Mcdonough Visit Number: [id number] ATTENTION: The Clinical Documentation Specialists (CDI) and [facility] Coding Staff appreciate your assistance in clarifying documentation. Please respond to the clarification below the line at the bottom and electronically sign. The CDI & [facility] Coding staff will review the response and follow-up if needed. Please note: Queries are made part of the Legal Health Record. If you have any questions, please contact the author of this message via ITS. Dr. Ankush Lira History/Risk Factors: GIB, HTN, Hyperlipidemia Tobacco use: occasional smoker Home oxygen: none Clinical Indicators: Vital signs: temp 97.3, hr 62, RR 26, B/P 182/79, SPO2 90% ra Attending Lung/Breathing assessment: Breath sounds diminished at the bases. Scattered rhonchi and crackles. Treatment: Iv Solumedrol tapering dose Navi-24 po 300mg Breathing TX: Duoneb Q 4 hrs PRN, Symbicort 2 puffs BID Pulse ox per unit protocol O2: 2l NC alternating with 32% BiPap BiPap: 32% BIPAP In your professional opinion, can you please clarify if these findings signify one of the following conditions? Acute Respiratory Failure Acute on Chronic Respiratory Failure Acute Respiratory Distress Acute Respiratory Insufficiency Other Diagnosis, please specify Unable to determine Specificity: If known, further specify (if known): With hypercapnia? (pCO2 >50 and pH <7.35) With hypoxia? (pO2 <60 mm Hg or SpO2 <91% on room air) (Last Query Form Revision: April 2019) MTDD
--- NOTE | 2019-08-26 17:59 | PN ---
PROGRESS NOTE DATE OF SERVICE: 08/26/2019 This 69-year-old woman was admitted with COPD acute exacerbation, also had continued ongoing nicotine dependence history. No chest pain. No palpitations. No fever. Dr. Nuñez is following the patient closely. EXAM: Alert and oriented x3. Pulse 98, blood pressure 119/50, respiration 17, temperature 97.2, pulse ox 94% on 2 L. HEENT: Conjunctivae normal. Oral mucosa moist. NECK: No jugular venous distention. No lymph node enlargement. CARDIOVASCULAR: S1, S2. RESPIRATORY: Diminished breath sounds at the bases. Bilateral scattered rhonchi and crackles. ABDOMEN: Soft, nontender. LEGS: No edema, no swelling. NERVOUS SYSTEM: No focal deficits. LABS: WBC 16, hemoglobin 14.4, sodium 130, potassium 3.8. ASSESSMENT: 1. Shortness of breath, possible chronic obstructive pulmonary disease exacerbation with acute purulent tracheobronchitis. 2. Continued ongoing nicotine dependence. 3. History of gastroesophageal reflux disease. 4. History of gastrointestinal bleed. 5. Hypertension. 6. Hyperlipidemia. 7. History of recent history of colonic polyps. 8. History of urinary tract infection. 9. History of nephrolithiasis. 10.History of cholecystectomy. 11.History of anxiety, depression. 12.Obesity with body mass index of 32.9. RECOMMENDATIONS AND DISCUSSION: Recommend to continue current medications, continue to monitor, continue symptomatic treatment. Otherwise, at this time, continue with IV steroids. Closely follow with Dr. Lira. The patient is feeling better. Possible discharge home in the next 24-48 hours. Further recommendations to follow. MMODL / IJN: [id number] /
[2019-08-26] MEDS ORDERED: DILTIAZEM ORAL 60 MG TAB PO SCH (20:30)
[2019-08-26] MEDS: DILTIAZEM ORAL 60 MG TAB PO SCH (21:00)
[2019-08-26] MEDS: ASPIRIN 81 MG PO SCH (21:04)
[2019-08-26] MEDS: ATORVASTATIN 20 MG TAB PO SCH (21:05)
[2019-08-26] MEDS: LOSARTAN 50 MG TAB PO SCH (21:05)
[2019-08-27] MEDS: DILTIAZEM ORAL 60 MG TAB PO SCH ×5 (01:42→21:56)
[2019-08-27] MEDS: methylPREDNISolone SOD SUCCI 125 MG/2 ML VIAL IV SCH ×3 (05:38→17:36)
[2019-08-27] MEDS: IPRATROPIUM-ALBUTEROL 3 ML NEB INHALATION SCH ×4 (08:26→21:21)
[2019-08-27] MEDS: SYMBICORT 160-4.5 MCG INHALER INHALATION SCH ×2 (08:27→21:21)
[2019-08-27] MEDS: guaiFENesin 600 MG TABLET.ER PO SCH ×2 (08:45→21:56)
[2019-08-27] MEDS: HEPARIN SODIUM,PORCINE 5,000 UNIT/ML 1 ML VIAL SQ SCH ×2 (08:45→21:56)
[2019-08-27] MEDS: CITALOPRAM HYDROBROMIDE 20 MG TAB PO SCH (08:46)
[2019-08-27] MEDS: NICOTINE 14MG/24HR PATCH TRANSDERM SCH (08:46)
[2019-08-27] MEDS: SULFAMETHOX-TMP 800-160MG 1 EACH TAB PO SCH ×2 (08:46→21:56)
[2019-08-27] MEDS: PANTOPRAZOLE 40 MG TABLET PO SCH (08:46)
--- NOTE | 2019-08-27 13:18 | P.CRDCN ---
History of Present Illness History of present illness: HISTORY OF PRESENTING ILLNESS This is a pleasant 69-year-old female past medical history significant for hypertension, dyslipidemia, chronic nicotine dependence and COPD. She shani es prior history of coronary artery disease and does not follow with a software programmer for any reason. We have been asked to see in consultation for arrhythmia. She initially presented to the hospital August 23 with symptoms of shortness of breath. She has been diagnosed with COPD and initiated on nebulizers, IV steroids and antibiotics per pulmonary care service. She is feeling somewhat better but not back to baseline. Last evening she verbalized to the nurse that she felt her heart racing. An EKG was obtained and was read as atrial flutter with heart rate of 147. Upon further review it appears to be either atrial tachycardia or 2:1 atrial flutter. She is not on telemetry for further review. She states she does feel her heart racing at times, typically after she has exerted herself and then is subsides with rest. She denies any associated worsening shortness of breath, no dizziness, chest pain, nausea, vomiting or diaphoresis. DIAGNOSTICS EKG reveals on admission reveals sinus mechanism with heart rate 83, repeat last night appears to be either atrial tachycardia vs 2:1 atrial flutter with a rate of 147. Chest xray on admission negative for an acute cardiopulmonary process. Echocardiogram reveals preserved LV systolic function with ejection fraction 55- 60%, mild TR and mild pulmonary hypertension with an RVSP of 35 mmHg. Aortic valve not well visualized. Laboratory reviewed, WBC 16, hemoglobin 14.5, platelets 248, sodium 138, potassium 4.8, creatinine 0.64, magnesium 2.3, troponin negative 1, NT proBNP 597, negative a and B influenza. Current cardiac medications include aspirin 81 mg daily, atorvastatin 20 mg daily, diltiazem 180 mg at bedtime and losartan 50 mg daily. Diltiazem was changed to short acting 60 mg QID last evening per primary care team. REVIEW OF SYSTEMS At the time of my exam: CONSTITUTIONAL: Denies fever or chills. CARDIOVASCULAR: Complains of intermittent palpitations and shortness of breath. Denies chest pain, orthopnea or PND. RESPIRATORY: Complains of cough. GASTROINTESTINAL: Denies abdominal pain, diarrhea, constipation, nausea or vo miting. MUSCULOSKELETAL: Denies myalgias. NEUROLOGIC: Denies numbness, tingling or weakness. ENDOCRINE: Denies fatigue, weight change, polydipsia or polyurina. GENITOURINARY: Denies burning, hematuria or urgency with micturation. HEMATOLOGIC: Denies history of anemia or bleeding. PHYSICAL EXAMINATION Blood pressure 151/72 heart rate 81 afebrile and maintaining oxygen saturation on room air. CONSTITUTIONAL: No apparent distress. HEENT: Head is normocephalic. Pupils are equal, round. Sclerae anicteric. Mucous membranes of the mouth are moist. No JVD. No carotid bruit. CHEST EXAMINATION: Expiratory wheezes noted throughout. No chest wall tenderness is noted on palpation or with deep breathing. Lungs diminished bilaterally. HEART EXAMINATION: Regular rate and rhythm. S1, S2 heard. No murmurs, gallops or rub. ABDOMEN: Soft, nontender. Positive bowel sounds. EXTREMITIES: 2+ peripheral pulses, no lower extremity edema and no calf tenderness. NEUROLOGIC EXAMINATION: Patient is awake, alert and oriented x3. ASSESSMENT Acute exacerbation of COPD, new diagnosis. Tachycardia, could be either atrial tachycardia vs atrial flutter. Hypertension Dyslipidemia Chronic nicotine dependence Leukocytosis secondary to IV steroids History of GI bleed with polypectomy in the past PLAN Apply surveillance monitor for further evaluation of palpitations. Repeat EKG. Check TSH and lipid profile. If there is further episodes suggestive of atrial flutter she will require terminal press operator anti-coagulation. Smoking cessation recommended. Thank you kindly for this consultation. Nurse Practitioner note has been reviewed, I agree with a documented findings and plan of care. Patient was seen and examined. Past Medical History Past Medical History: GERD/Reflux, GI Bleed, Hyperlipidemia, Hypertension, Renal Disease Additional Past Medical History / Comment(s): Lower GI bleed, benign colon polyps, UTI, pt thinks she has passed kidney stones in the past. History of Any Multi-Drug Resistant Organisms: None Reported Past Surgical History: Appendectomy, Cholecystectomy, Tonsillectomy Additional Past Surgical History / Comment(s): Colonoscopy with benign jaylyn ypectomy Past Anesthesia/Blood Transfusion Reactions: No Reported Reaction Smoking Status: Current every day smoker - Past Family History Brother(s) Family Medical History: Cancer Additional Family Medical History / Comment(s): Colon cancer. Father History Unknown: Yes Additional Family Medical History / Comment(s): Father never went to the doctor. Mother History Unknown: Yes Additional Family Medical History / Comment(s): Mother never went to the doctor. Medications and Allergies Home Medications Medication Instructions Recorded Confirmed Type Aspirin EC [Ecotrin Low Dose] 81 mg PO HS 05/22/16 08/23/19 History Atorvastatin Calcium [Lipitor] 20 mg PO HS 10/15/16 08/23/19 History Citalopram Hydrobromide 40 mg PO DAILY 08/23/19 08/23/19 History [Citalopram HBr] Diltiazem HCl [Diltiazem ER] 180 mg PO HS 08/23/19 08/23/19 History Losartan [Cozaar] 50 mg PO HS 08/23/19 08/23/19 History guaiFENesin [Mucinex] 1,200 mg PO BID 08/23/19 08/23/19 History Allergies Allergy/AdvReac Type Severity Reaction Status Date / Time No Known Allergies Allergy Verified 08/23/19 07:43 Physical Exam Vitals: Vital Signs Temp Pulse Pulse Pulse Resp BP Pulse Ox 08/27/19 11:53 98 F 81 17 151/72 94 L 08/27/19 08:38 88 08/27/19 08:28 88 08/27/19 04:42 97.5 F L 85 20 131/72 92 L 08/27/19 03:00 97.7 F 83 83 20 136/70 92 L 08/27/19 00:00 74 133 H 18 08/26/19 23:28 97.9 F 74 18 151/76 93 L 08/26/19 21:19 133 H 08/26/19 20:00 97.7 F 145 H 18 136/77 92 L 08/26/19 17:27 98 17 08/26/19 17:05 85 08/26/19 16:56 85 96 08/26/19 13:00 97.6 F 98 17 119/55 95 08/26/19 12:50 92 08/26/19 12:35 80 Intake and Output 08/26/19 08/27/19 08/27/19 22:59 06:59 14:59 Intake Total 840 590 Balance 840 590 Intake: Oral 840 590 Other: Voiding Method Toilet Toilet Toilet # Voids 2 3 Results 08/26/19 07:01 08/26/19 07:01 Current Medications Generic Name Dose Route Start Last Admin Trade Name Freq PRN Reason Stop Dose Admin Acetaminophen 500 mg 08/23/19 15:48 Tylenol Tab PO Q6HR PRN Fever and/ or Pain Albuterol/Ipratropium 3 ml 08/23/19 16:00 08/27/19 08:26 Duoneb 0.5 Mg-3 Mg/3 Ml Soln INHALATION 3 ml RT-QID FAB Administration Albuterol/Ipratropium 3 ml 08/23/19 15:09 Duoneb 0.5 Mg-3 Mg/3 Ml Soln INHALATION RT-QID PRN Shortness Of Breath Or Wheezing Alprazolam 0.25 mg 08/23/19 15:48 Xanax PO TID PRN Anxiety Aspirin 81 mg 08/23/19 21:00 08/26/19 21:04 Aspirin PO 81 mg HS FAB Administration Atorvastatin Calcium 20 mg 08/23/19 21:00 08/26/19 21:05 Lipitor PO 20 mg HS FAB Administration Budesonide/Formoterol Fumarate 2 puff 08/23/19 20:00 08/27/19 08:27 Symbicort 160-4.5 Mcg Inhaler INHALATION 2 puff RT-BID FAB Administration Citalopram Hydrobromide 40 mg 08/24/19 09:00 08/27/19 08:46 Celexa PO 40 mg DAILY FAB Administration Diltiazem HCl 180 mg 08/23/19 21:00 08/25/19 21:46 Cardizem Cd PO 180 mg HS FAB Administration Diltiazem HCl 60 mg 08/27/19 03:00 08/27/19 08:45 Cardizem Oral PO 60 mg Q6H FAB Administration Guaifenesin 1,200 mg 08/23/19 21:00 08/27/19 08:45 Mucinex PO 1,200 mg BID FAB Administration Guaifenesin/Codeine Phosphate 10 ml 08/23/19 06:29 08/24/19 21:59 Robitussin Ac PO 10 ml Q6H PRN Administration Cough Heparin Sodium (Porcine) 5,000 unit 08/23/19 21:00 08/27/19 08:45 Heparin SQ 5,000 unit Q12HR FAB Administration Losartan Potassium 50 mg 08/23/19 21:00 08/26/19 21:05 Cozaar PO 50 mg HS FAB Administration Methylprednisolone Sodium Succinate 60 mg 08/23/19 18:00 08/27/19 12:29 Solu-Medrol IV 60 mg Q6HR FAB Administration Nicotine 1 patch 08/23/19 09:00 08/27/19 08:46 Habitrol 14mg/24hr Patch TRANSDERM 1 patch DAILY FAB Administration Nicotine Polacrilex 2 mg 08/23/19 06:29 Nicorette Gum BUCCAL Q2H PRN smoking cessation Pantoprazole Sodium 40 mg 08/24/19 07:30 08/27/19 08:46 Protonix PO 40 mg [id number] FAB Administration Temazepam 15 mg 08/23/19 15:48 Restoril PO HS PRN Insomnia Trimethoprim/Sulfamethoxazole 1 each 08/23/19 21:00 08/27/19 08:46 Bactrim Ds PO 1 each BID FAB Administration Intake and Output 08/26/19 08/27/19 08/27/19 22:59 06:59 14:59 Intake Total 840 590 Balance 840 590 Intake: Oral 840 590 Other: Voiding Method Toilet Toilet Toilet # Voids 2 3 08/26/19 07:01 08/26/19 07:01
--- NOTE | 2019-08-27 13:35 | P.PN ---
Subjective Progress Note Date: 08/27/19 Principal diagnosis: Acute exacerbation of COPD On 08/24/2019 patient seen in follow-up on medical surgical floor. She is feeling better, breathing a bit easier, however still dyspneic, and bronchospastic on today's exam. She is awake and alert, mentation appropriate, on 2 L of oxygen her pulse ox is 96%, hemodynamically stable. On today's labs her white blood cell count is 21.9, could be related to IV steroids, hemoglobin is 15.3, sodium is 141, potassium is 4.0, chloride is 110, CO2 is 21, B1 is 19 and creatinine 0.5. Influenza screen was negative. Occasional cough, no hemoptysis. On 08/26/2019 patient is seen in follow-up on medical surgical floor. She is improving, still some slight congestion, and some scattered wheezing, but overall doing better breathing easier. He is on 2 L of oxygen her pulse ox is 95%, hemodynamically stable, she is afebrile. Patient is on nebulized bronchodilators, IV steroids, and Bactrim for antibiotic coverage On 08/27/2019 patient is seen in follow-up on medical surgical floor. She is improving, however still bronchospastic with some residual congestion, FiO2 is down to room air, with a pulse ox of 94%, no fever or chills, hemodynamically stable. Today's labs have been reviewed, showing white blood cell count of 16, hemoglobin 14.5, sodium 138, potassium is 4.8, chloride is 109, CO2 is 24, B1 is 22 creatinine 0.64, influenza screen was negative, last night patient had a run of a floater with a rate of 147, and cardiology is evaluating the patient. Today she is in sinus rhythm with a controlled rate. Patient continues on nebulized bronchodilators, IV steroids, cough medicine, and Bactrim Objective - Vital Signs Vital signs: Vital Signs Temp 98 F 08/27/19 11:53 Pulse 81 08/27/19 11:53 Resp 17 08/27/19 11:53 BP 151/72 08/27/19 11:53 Pulse Ox 94 L 08/27/19 11:53 Intake & Output 08/26/19 08/27/19 08/27/19 18:59 06:59 18:59 Intake Total 250 1430 Output Total 300 Balance -50 1430 Intake: Oral 250 1430 Output: Urine 300 Other: Voiding Method Toilet Toilet Toilet # Voids 3 - Exam GENERAL EXAM: Alert, very pleasant, 69-year-old white female comfortable in no apparent distress. HEAD: Normocephalic/atraumatic. EYES: Normal reaction of pupils, equal size. Conjunctiva pink, sclera white. NOSE: Clear with pink turbinates. THROAT: No erythema or exudates. NECK: No masses, no JVD, no thyroid enlargement, no adenopathy. CHEST: No chest wall deformity. Symmetrical expansion. LUNGS: Equal air entry with diffuse wheezes CVS: Regular rate and rhythm, normal S1 and S2, no gallops, no murmurs, no rubs ABDOMEN: Soft, nontender. No hepatosplenomegaly, normal bowel sounds, no guarding or rigidity. EXTREMITIES: No clubbing, no edema, no cyanosis, 2+ pulses and upper and lower extremities. MUSCULOSKELETAL: Muscle strength and tone normal. SPINE: No scoliosis or deformity SKIN: No rashes CENTRAL NERVOUS SYSTEM: Alert and oriented -3. No focal deficits, tone is normal in all 4 extremities. PSYCHIATRIC: Alert and oriented -3. Appropriate affect. Intact judgment and insight. - Labs CBC & Chem 7: 08/26/19 07:01 08/26/19 07:01 Assessment and Plan Plan: Assessment: #1. Acute exacerbation of chronic obstructive pulmonary disease #2. Hitory of ongoing tobacco use with nicotine addiction #3. History of hypertension #4. History of hyperlipidemia #5. New onset Aflutter with RVR last night, currently in sinus rhythm patient is being evaluated by cardiology Plan: Continue current medical treatment, continue nebulized bronchodilators, Symbicort, same dose IV steroids, cough syrup and Bactrim, patient is improving, not back to baseline, will probably need another 24 hours inpatient treatment. I performed a history & physical examination of the patient and discussed their management with my nurse practitioner, Billie Apodaca. I reviewed the nurse practitioner's note and agree with the documented findings and plan of care. Lung sounds are positive for diffuse wheezes throughout the lung garduno. The findings and the impression was discussed with the patient. I attest to the documentation by the nurse practitioner. Time with Patient: Less than 30
[2019-08-27 14:24] LABS: T4, Free (Free Thyroxine) 1.14 ng/dL (0.78-2.19)
[2019-08-27 14:40] LABS: Cholesterol 185 mg/dL (<200); HDL Cholesterol 64 mg/dL (40-60); LDL Cholesterol,Calculated 80 mg/dL (0-99); Triglycerides 206 mg/dL (<150)
--- NOTE | 2019-08-27 20:39 | PN ---
PROGRESS NOTE DATE OF SERVICE: 08/27/2019 This 69-year-old woman who was admitted with COPD exacerbation also had atrial flutter yesterday. Cardiology has been consulted. The heart rate is around 140s. Atrial flutter with 2:1 AV block was noted in the EKG. The patient is being closely monitored at this time. PAST MEDICAL HISTORY: Reviewed. REVIEW OF SYSTEMS: CARDIOVASCULAR SYSTEM: As mentioned earlier. RESPIRATORY: As mentioned earlier. GI: As mentioned earlier. : No dysuria. NERVOUS SYSTEM: No numbness or weakness. CURRENT MEDICATIONS: 1. Tylenol p.r.n. 2. DuoNeb q.i.d. and p.r.n. 3. Xanax 0.5 t.i.d. 4. Lipitor. 5. Symbicort 160/4.5 b.i.d. 6. Celexa. 7. Cardizem. 8. Mucinex. 9. Robitussin. 10.Heparin subcu. 11.Solu-Medrol 60 IV q.6h. 12.Protonix. 13.Restoril. 14.Bactrim DS. PHYSICAL EXAMINATION: Patient is alert, oriented x3. Pulse is 84. Blood pressure 151/72, respirations 17, temperature 98 degrees, pulse ox 94% on room air. HEENT: Conjunctivae normal. Oral mucosa moist. NECK: No jugular venous distention. No lymph node enlargement. CARDIOVASCULAR: S1, S2. RESPIRATORY: Diminished breath sounds at the bases. A few scattered rhonchi and crackles. ABDOMEN: Soft, nontender. LEGS: No edema, no swelling. NERVOUS SYSTEM: No focal deficits. LABS: WBC 16, hemoglobin 14.5, sodium 138, potassium 4.8 and triglycerides are 206. ( ) 64. TSH is 0.163, but free T4 is normal. ASSESSMENT: 1. Shortness of breath, possible chronic obstructive pulmonary disease acute exacerbation with acute purulent tracheobronchitis. 2. Atrial flutter, tachycardia with 2:1 AV block. 3. Continued ongoing nicotine dependence. 4. History of gastroesophageal reflux disease. 5. History of gastrointestinal bleed. 6. Hypertension. 7. Hyperlipidemia. 8. History of recent history of colonic polyps. 9. History urinary tract infection. 10.History of nephrolithiasis. 11.History of cholecystectomy. 12.History of anxiety, depression. 13.Obesity with body mass index of 32.9. RECOMMENDATIONS AND DISCUSSION: I recommend to continue current medications, continue to monitor, continue symptomatic treatment. Otherwise, at this time I recommend continue the bronchodilators. Cardiology input appreciated. 2D echo with Doppler. TSH is noted. Otherwise, continue with IV steroids. Cardiology also recommended anticoagulation if there is a recurrence of arrhythmia. We will continue to monitor. Further recommendations to follow. AIDA / SENGN: [id number] /
[2019-08-27] MEDS: ATORVASTATIN 20 MG TAB PO SCH (21:56)
[2019-08-27] MEDS: ASPIRIN 81 MG PO SCH (21:56)
[2019-08-27] MEDS: LOSARTAN 50 MG TAB PO SCH (21:56)
[2019-08-28] MEDS: methylPREDNISolone SOD SUCCI 125 MG/2 ML VIAL IV SCH ×5 (00:08→23:18)
[2019-08-28] MEDS: DILTIAZEM ORAL 60 MG TAB PO SCH ×4 (02:49→21:09)
[2019-08-28] MEDS: NICOTINE 14MG/24HR PATCH TRANSDERM SCH (08:31)
[2019-08-28] MEDS: CITALOPRAM HYDROBROMIDE 20 MG TAB PO SCH (08:31)
[2019-08-28] MEDS: PANTOPRAZOLE 40 MG TABLET PO SCH (08:31)
[2019-08-28] MEDS: guaiFENesin 600 MG TABLET.ER PO SCH ×2 (08:32→21:08)
[2019-08-28] MEDS: HEPARIN SODIUM,PORCINE 5,000 UNIT/ML 1 ML VIAL SQ SCH ×2 (08:32→21:08)
[2019-08-28] MEDS: SULFAMETHOX-TMP 800-160MG 1 EACH TAB PO SCH ×2 (08:33→21:09)
[2019-08-28] MEDS: SYMBICORT 160-4.5 MCG INHALER INHALATION SCH ×2 (09:30→20:27)
[2019-08-28] MEDS: IPRATROPIUM-ALBUTEROL 3 ML NEB INHALATION SCH ×4 (09:30→20:27)
--- NOTE | 2019-08-28 15:09 | P.PN ---
Subjective Progress Note Date: 08/28/19 Principal diagnosis: Acute exacerbation of chronic obstructive pulmonary disease per The patient is seen today 08/28/2019 in follow-up on the regular medical floor. She is awake and alert in no acute distress. Feeling back to her baseline. Less bronchospastic and wheezy. Maintaining good O2 saturation in the upper 90s on room air. She is continued on DuoNeb inhalations, Symbicort, IV Solu-Medrol. On both NicoDerm patch and Nicorette gum. Antibiotics in the in the form of Bactrim. Objective - Vital Signs Vital signs: Vital Signs Temp 97.5 F L 08/28/19 05:00 Pulse 84 08/28/19 15:02 Resp 18 08/28/19 13:45 BP 150/75 08/28/19 05:00 Pulse Ox 96 08/28/19 05:00 Intake & Output 08/27/19 08/28/19 08/28/19 18:59 06:59 18:59 Intake Total 500 200 Output Total 300 Balance 500 -100 Intake: Oral 500 200 Output: Urine 300 Other: Voiding Method Toilet Toilet Toilet # Voids 1 1 - Exam GENERAL EXAM: Alert, pleasant, 69-year-old female patient, on room air, comfortable in no apparent distress. HEAD: Normocephalic/atraumatic. EYES: Normal reaction of pupils, equal size. Conjunctiva pink, sclera white. NOSE: Clear with pink turbinates. THROAT: No erythema or exudates. NECK: No masses, no JVD, no thyroid enlargement, no adenopathy. CHEST: No chest wall deformity. Symmetrical expansion. LUNGS: Equal air entry with end expiratory wheeze, diminished CVS: Regular rate and rhythm, normal S1 and S2, no gallops, no murmurs, no rubs ABDOMEN: Soft, nontender. No hepatosplenomegaly, normal bowel sounds, no guarding or rigidity. EXTREMITIES: No clubbing, no edema, no cyanosis, 2+ pulses and upper and lower extremities. MUSCULOSKELETAL: Muscle strength and tone normal. SPINE: No scoliosis or deformity SKIN: No rashes CENTRAL NERVOUS SYSTEM: No focal deficits, tone is normal in all 4 extremities. PSYCHIATRIC: Alert and oriented -3. Appropriate affect. Intact judgment and insight. - Labs CBC & Chem 7: 08/26/19 07:01 08/26/19 07:01 Assessment and Plan Assessment: #1. Acute exacerbation of chronic obstructive pulmonary disease #2. Hitory of ongoing tobacco use with nicotine addiction #3. History of hypertension #4. History of hyperlipidemia Plan: The patient is seen and evaluated by Dr. Lira. She is cleared for discharge from the pulmonary standpoint. Complete prednisone burst and taper starting at 40 mg daily for 4 days. Complete course of antibiotics. She is again educated regarding the importance of complete smoking cessation. Follow-up in our office in 1-2 weeks' time. She is encouraged to call sooner with any recurrence of symptoms or other questions or concerns. I, the cosigning physician, performed a history & physical examination of the patient. Lungs sounds with bilateral end expiratory wheeze, diminished. Maintaining good O2 saturations in the 90s on room air. I discussed the assessment and plan of care with my nurse practitioner, Mireille Marin. I attest to the above note as dictated by her.
--- NOTE | 2019-08-28 18:42 | CONS ---
CONSULTATION Candace is admitted to hospital with COPD exacerbation, has had runs of atrial tachycardia. This morning she is feeling better, has not had any further episodes of atrial tachycardia or atrial flutter on Cardizem. On exam, comfortable at rest. Vital signs are stable. Chest exam reveals diminished air entry with mild bilateral rhonchi. Heart exam reveals first and second heart sounds. No gallop. Exam of extremities did not reveal any edema. Peripheral pulses are palpable. LABS: Show a hemoglobin of 14.5, potassium is 4.8, creatinine is 0.6. ASSESSMENT: 1. Atrial tachycardia. 2. Chronic obstructive pulmonary disease exacerbation. PLAN: Patient is doing well. Hopefully can be discharged home tomorrow. MMODL / IJN: [id number] /
--- NOTE | 2019-08-28 19:30 | PN ---
PROGRESS NOTE DATE OF SERVICE: 08/28/2019 This 69-year-old woman who was admitted with COPD exacerbation also had atrial flutter with 2:1 AV block. Patient closely monitored. No chest pain. No palpitations. No fever. PHYSICAL EXAM: Alert and oriented x3. Pulse is pulse is blood pressure 146/65, respiration 21, temperature 98, pulse ox 98% on room air. HEENT: Conjunctivae normal. Oral mucosa moist. NECK: No jugular venous distention. No lymph node enlargement. CARDIOVASCULAR: S1, S2. RESPIRATORY: Diminished breath sounds at the bases. Bilateral scattered rhonchi and crackles. ABDOMEN: Soft, nontender. No mass palpable. LEGS: No edema, no swelling. NERVOUS SYSTEM: Higher functions mentioned earlier. Moves all four limbs. No focal deficits. LYMPHATICS: No lymph node in neck or axilla. SKIN: No rash. JOINTS: No active deforming arthropathy. LABS: WBC 16, hemoglobin 14.5, and TSH 0.163, but free T4 is normal. AST is 64. Triglycerides 206. ASSESSMENT: 1. Shortness of breath, possible chronic obstructive pulmonary disease acute exacerbation with acute purulent tracheobronchitis. 2. Atrial flutter, tachycardia, 2:1 AV block. 3. Continued ongoing nicotine dependence. 4. History of gastroesophageal reflux disease. 5. History of gastrointestinal bleed. 6. Hypertension. 7. Hyperlipidemia. 8. Recent history of colonic polyps. 9. History of urinary tract infection. 10.History of nephrolithiasis. 11.History of cholecystectomy. 12.Anxiety, depression. 13.Body mass index of 30.9. RECOMMENDATIONS AND DISCUSSION: Recommend to continue current medications, continue to monitor, continue symptomatic treatment. Continue the tapering steroids. Closely follow with pulmonology. Guarded prognosis because of multiple complex medical issues. Further recommendations to follow. MMODL / IJN: [id number] /
[2019-08-28] MEDS: LOSARTAN 50 MG TAB PO SCH (21:08)
[2019-08-28] MEDS: ATORVASTATIN 20 MG TAB PO SCH (21:08)
[2019-08-28] MEDS: ASPIRIN 81 MG PO SCH (21:08)
[2019-08-29] MEDS: DILTIAZEM ORAL 60 MG TAB PO SCH ×2 (04:52→08:29)
[2019-08-29] MEDS: methylPREDNISolone SOD SUCCI 125 MG/2 ML VIAL IV SCH (06:10)
[2019-08-29] MEDS: PANTOPRAZOLE 40 MG TABLET PO SCH (08:29)
[2019-08-29] MEDS: SYMBICORT 160-4.5 MCG INHALER INHALATION SCH (08:29)
[2019-08-29] MEDS: guaiFENesin 600 MG TABLET.ER PO SCH (08:29)
[2019-08-29] MEDS: CITALOPRAM HYDROBROMIDE 20 MG TAB PO SCH (08:29)
[2019-08-29] MEDS: SULFAMETHOX-TMP 800-160MG 1 EACH TAB PO SCH (08:29)
[2019-08-29] MEDS: IPRATROPIUM-ALBUTEROL 3 ML NEB INHALATION SCH ×2 (08:29→11:34)
[2019-08-29] MEDS: NICOTINE 14MG/24HR PATCH TRANSDERM SCH (08:30)
[2019-08-29] MEDS: HEPARIN SODIUM,PORCINE 5,000 UNIT/ML 1 ML VIAL SQ SCH (08:30)
[2019-08-29 11:40] VITALS: BP 142/67; RESP 18; TEMP 98.3
[2019-08-29 11:53] VITALS: PULSE 86
--- NOTE | 2019-08-29 12:55 | P.PN ---
Subjective Progress Note Date: 08/29/19 Principal diagnosis: Acute exacerbation of chronic obstructive pulmonary disease per The patient is seen today 08/28/2019 in follow-up on the regular medical floor. She is awake and alert in no acute distress. Feeling back to her baseline. Less bronchospastic and wheezy. Maintaining good O2 saturation in the upper 90s on room air. She is continued on DuoNeb inhalations, Symbicort, IV Solu-Medrol. On both NicoDerm patch and Nicorette gum. Antibiotics in the in the form of Bactrim. The patient is seen today 08/29/2019 in follow-up on the regular medical floor. She is currently sitting up in bed. Awake and alert in no acute distress. She is feeling back to her baseline. She is anxious to go home. She is maintaining O2 saturation in the mid 90s on room air. She's afebrile.She is continued on DuoNeb inhalations, Symbicort, IV Solu-Medrol. On both NicoDerm patch and Nicorette gum. Antibiotics in the in the form of Bactrim. Objective - Vital Signs Vital signs: Vital Signs Temp 98.3 F 08/29/19 11:12 Pulse 86 08/29/19 11:51 Resp 18 08/29/19 11:12 BP 142/67 08/29/19 11:12 Pulse Ox 95 08/29/19 11:12 Intake & Output 08/28/19 08/29/19 08/29/19 18:59 06:59 18:59 Intake Total 200 590 Output Total 300 Balance -100 590 Intake: Oral 200 590 Output: Urine 300 Other: Voiding Method Toilet Toilet Toilet # Voids 1 2 - Exam GENERAL EXAM: Alert, pleasant, 69-year-old female patient, on room air, comfortable in no apparent distress. HEAD: Normocephalic/atraumatic. EYES: Normal reaction of pupils, equal size. Conjunctiva pink, sclera white. NOSE: Clear with pink turbinates. THROAT: No erythema or exudates. NECK: No masses, no JVD, no thyroid enlargement, no adenopathy. CHEST: No chest wall deformity. Symmetrical expansion. LUNGS: Equal air entry with end expiratory wheeze, diminished CVS: Regular rate and rhythm, normal S1 and S2, no gallops, no murmurs, no rubs ABDOMEN: Soft, nontender. No hepatosplenomegaly, normal bowel sounds, no guarding or rigidity. EXTREMITIES: No clubbing, no edema, no cyanosis, 2+ pulses and upper and lower extremities. MUSCULOSKELETAL: Muscle strength and tone normal. SPINE: No scoliosis or deformity SKIN: No rashes CENTRAL NERVOUS SYSTEM: No focal deficits, tone is normal in all 4 extremities. PSYCHIATRIC: Alert and oriented -3. Appropriate affect. Intact judgment and insight. - Labs CBC & Chem 7: 08/26/19 07:01 08/26/19 07:01 Assessment and Plan Assessment: #1. Acute exacerbation of chronic obstructive pulmonary disease #2. Hitory of ongoing tobacco use with nicotine addiction #3. History of hypertension #4. History of hyperlipidemia Plan: The patient is seen and evaluated by Dr. Lira. She is cleared for discharge from the pulmonary standpoint. Complete prednisone burst and taper starting at 40 mg daily for 4 days. Complete a course of antibiotics. She is again educated regarding the importance of complete smoking cessation. I, the cosigning physician, performed a history & physical examination of the [facility]. Lungs sounds with bilateral end expiratory wheeze, diminished. Maintaining good O2 saturations in the 90s on room air. I discussed the assessment and plan of care with my nurse practitioner, Mireille Marin. I attest to the above note as dictated by her.
--- NOTE | 2019-08-30 08:15 | DS ---
DISCHARGE SUMMARY DATE OF SERVICE: 08/29/2019 FINAL DIAGNOSES: 1. Chronic obstructive pulmonary disease acute exacerbation with acute purulent tracheobronchitis. 2. Atrial flutter, tachycardia with 2:1 AV block. 3. Continued ongoing nicotine dependence. 4. Gastroesophageal reflux disease. 5. History of gastrointestinal bleed. 6. Hypertension. 7. Hyperlipidemia. 8. Recent history of colonic polyps. 9. History of urinary tract infection. 10.History of nephrolithiasis. 11.History of cholecystectomy. 12.History of anxiety, depression. 13.Body mass index of 30.9. DISCHARGE DISPOSITION: The patient will be discharged in stable condition with guarded prognosis. HISTORY OF PRESENT ILLNESS: This 69-year-old woman with a past medical history of multiple medical problems admitted with COPD acute exacerbation with acute purulent tracheobronchitis, treated with bronchodilators and steroids and antibiotics, improved significantly. Dr. Lira cleared the patient for discharge. Patient also had episode of atrial flutter tachycardia 2:1 AV block without any recurrence. Cardiology saw the patient and recommended outpatient followup. On exam, vitals are stable. CARDIOVASCULAR: S1, S2 muffled. ABDOMEN: Soft. NERVOUS SYSTEM: No focal deficits. RESPIRATORY: A few rhonchi. DISCHARGE ADVICE: 1. Diet is cardiac. 2. Activity limited until followup. 3. Follow up with Dr. Alcala in 2 to 3 days. 4. Follow up with Cardiology and Pulmonology as recommended. MEDICATIONS: 1. Celexa 40 mg p.o. daily. 2. Cozaar 50 mg at bedtime. 3. Aspirin 81 mg at bedtime. 4. Lipitor 20 mg at bedtime. 5. Mucinex 1200 mg p.o. b.i.d. 6. Bactrim DS 1 p.o. b.i.d. 7. Cardizem CD 240 mg p.o. daily. 8. DuoNeb q.i.d. and p.r.n. 9. Habitrol 14 daily. 10.Prednisone 40 mg daily for 3 days, 30 for 3 days, 20 for 3 days 10 for 3 days. 11.Symbicort 160/4.5 two puffs b.i.d. Once again, the patient will be discharged in a stable condition with a guarded prognosis. MMODL / IJN: [id number] /
== END 2019-08-29 12:51 | disposition home or self-care (01) | DRG 191 ==
LOC: EC 04:22 → 4SSUR 06:29 → 5NMEDONC 13:04 → OBSVTOIN 08-26 08:53
PROVIDERS: ADMIT Internal Medicine; ATTEND Internal Medicine
DX: J44.1 Chronic obstructive pulmonary disease with (acute) exacerbation (principal); I48.92 Unspecified atrial flutter; I47.1 Supraventricular tachycardia; J44.0 Chronic obstructive pulmonary disease with (acute) lower respiratory infection; I27.20 Pulmonary hypertension, unspecified; I44.1 Atrioventricular block, second degree; E66.9 Obesity, unspecified; E78.5 Hyperlipidemia, unspecified; F17.210 Nicotine dependence, cigarettes, uncomplicated; F32.9 Major depressive disorder, single episode, unspecified; F41.9 Anxiety disorder, unspecified; I10 Essential (primary) hypertension; K21.9 Gastro-esophageal reflux disease without esophagitis; R09.02 Hypoxemia; T38.0X5A Adverse effect of glucocorticoids and synthetic analogues, initial encounter; D72.829 Elevated white blood cell count, unspecified; J20.9 Acute bronchitis, unspecified; I07.1 Rheumatic tricuspid insufficiency; Z68.32 Body mass index [BMI] 32.0-32.9, adult; Z79.82 Long term (current) use of aspirin; Z79.899 Other long term (current) drug therapy; Z90.49 Acquired absence of other specified parts of digestive tract; Z87.442 Personal history of urinary calculi; Z87.440 Personal history of urinary (tract) infections; Z86.010 Personal history of colon polyps; Z71.6 Tobacco abuse counseling; Z80.0 Family history of malignant neoplasm of digestive organs
CPT/HCPCS: 36415; 71046; 80048; 80053; 80061; 83735; 83880; 84439; 84443; 84484; 85025; 85610; 85730; 87502; 93005; 93306; 94640; 94760; 99285